=== PATIENT | male | born 1975 | race Caucasian/White ===

== ENCOUNTER 2018-04-04 07:46 | Day surgery (SDC) | payer OTHER ==
[2018-04-03 13:24] VITALS: BMI 30.8
[2018-04-04 08:28] LABS: #Eosinphils 0.2 thou/uL (0.0-0.7); #Lymphocytes 2.7 thou/uL (1.20-3.40); #Monocytes 0.7 thou/uL (0.11-0.59); #Neutrophils 4.7 thou/uL (1.40-6.50); %Basophils 0.4 % (0.0-1.0); %Eosinophils 2.1 % (0.0-10.0); %Lymphocytes 31.9 % (21.0-51.0); %Monocytes 8.6 % (0.0-10.0); Hemoglobin 17.8 g/dL (14.0-18.0); INR-International Normal Ratio 0.9; Mean Corpuscular HGB CONC 33.6 g/dL (32.0-36.0); Mean Corpuscular Hemoglobin 29.8 pg (27.0-31.0); Mean Corpuscular Volume 88.7 fL (78.0-98.0); Mean Platelet Volume 7.7 fL (7.4-10.4); PTT 27.6 SEC (22.9-36.1); Platelet Count 293 thou/uL (130-400); Prothrombin Time 12.2 SEC (12.0-14.7); RBC Distribution Width 11.8 % (11.5-14.5); Red Blood Cell (RBC) Count 5.97 mill/uL (4.70-6.10); White Blood Cell (WBC) Count 8.3 thou/uL (4.8-10.8)
[2018-04-04 08:40] LABS: Anion Gap 9 mmol/L (10-20); BUN (Urea Nitrogen) 11 mg/dL (8.9-20.6); Calc. Creatinine Clearance 148 mL/min (70-130); Calcium 9.5 mg/dL (7.8-10.44); Carbon Dioxide 27 mmol/L (22-29); Chloride 106 mmol/L (98-107); Estimated GFR-MDRD 81; Glucose 111 mg/dL (70-105); Potassium 4.1 mmol/L (3.5-5.1); Sodium 138 mmol/L (136-145)
[2018-04-04] MEDS ORDERED: CEFAZOLIN/Water 2 GM/20 ML SYRINGE ONE (08:55)
[2018-04-04] MEDS ORDERED: Thrombin 5000 UNITS/5 ML VIAL ONE (09:06)
[2018-04-04] MEDS ORDERED: Sodium Chloride 0.9% 10 ML ONE (09:06)
[2018-04-04] MEDS ORDERED: Bacitracin Zinc Ointment 30 gm TUBE ONE (09:06)
[2018-04-04] MEDS ORDERED: Midazolam HCl 2 mg/2 ml Vial ONE ×2 (09:48→12:46)
[2018-04-04] MEDS ORDERED: Fentanyl 100 MCG/2 ML VIAL ONE ×4 (09:55→14:09)
--- NOTE | 2018-04-04 12:28 | OP ---
SURGEON: Chito Cobos M.D. SPRING INTERN: Mich Tamayo PA-C. PREPROCEDURE DIAGNOSES: Right L5-S1 radiculopathy with right L4-L5 and right L5-S1 disk extrusions. POSTPROCEDURE DIAGNOSES: Right L5-S1 radiculopathy with right L4-L5 and right L5-S1 disk extrusions. PROCEDURES: 1. Right L4-L5, right L5-S1 hemilaminotomies, foraminotomies with diskectomies, right L4-L5 and righ t L5-S1. 2. Use of operative microscope for microdissection. PROCEDURE: After informed consent was obtained, the patient was brought to OR 11. Proper patient pa use and identification was carried out. He was placed in excellent general endotracheal anesthesia a nd positioned prone on the OR table. All appropriate points were padded. We identified the L4, L5, S1 dorsal spines. A linear marva was made over this area. This region was sterilely cleansed, prepar ed, and draped. Proper patient pause and identification was carried out. The wound was then opened with a combination of sharp, monopolar and blunt dissection. The L4, L5, S1 dorsal spines and hemila edouard on the right side were exposed. Localization film confirmed our area of interest. We then perf ormed right L4-L5, right L5-S1 hemilaminotomies and foraminotomies. The microscope was brought in fo r microdissection. Copious irrigation occurred throughout were satisfied with our diskectomies at th e right L4-L5, right L5-S1 segments. The wound was copiously irrigated and closed in anatomic layers and hemostasis was maximized.
[2018-04-04] MEDS ORDERED: Milk Of Magnesia 30 ML UDCUP PO PRN (12:50)
[2018-04-04] MEDS ORDERED: Promethazine HCl 25 MG/ML VIAL IM PRN ×2 (12:50→13:03)
[2018-04-04] MEDS ORDERED: Acetaminophen/Codeine 30-300mg Tablet PO PRN (12:50)
[2018-04-04] MEDS ORDERED: Morphine 4 MG/ML VIAL SLOW IVP PRN (12:50)
[2018-04-04] MEDS ORDERED: Mag-Al 1200 mg/1200 mg/30 ML UDCUP PO PRN (12:50)
[2018-04-04] MEDS ORDERED: Acetaminophen 325 MG TAB PO PRN (12:50)
[2018-04-04] MEDS ORDERED: Fleet Enema 133 ML BOT PR PRN (12:50)
[2018-04-04] MEDS ORDERED: INSULIN LISPRO SQ PRN (12:54)
[2018-04-04] MEDS: Sodium Chloride 0.9% 1,000 ML IV SCH (13:00)
[2018-04-04] MEDS ORDERED: Morphine Sulfate 2 MG/ML SYRINGE SLOW IVP PRN (13:03)
[2018-04-04] MEDS ORDERED: HYDROmorphone 2 MG/ML VIAL SLOW IVP PRN (13:03)
[2018-04-04] MEDS ORDERED: Meperidine HCl/PF 25 MG/ML VIAL SLOW IVP PRN (13:03)
[2018-04-04] MEDS ORDERED: Promethazine HCl 25 MG/ML VIAL SLOW IVP PRN (13:03)
[2018-04-04] MEDS ORDERED: Ondansetron HCl/PF 4 MG/2 ML Vial IVP PRN (13:03)
[2018-04-04] MEDS ORDERED: Ondansetron HCl/PF 4 MG/2 ML Vial ONE ×2 (13:14→13:17)
[2018-04-04] MEDS ORDERED: PHENYLEPHRINE-NS 100 MCG/ML 10 ML SYRINGE ONE (13:17)
[2018-04-04] MEDS ORDERED: Dexamethasone 20 MG/5 ML VIAL ONE (13:17)
[2018-04-04] MEDS ORDERED: PROPOFOL 200 MG/20 ML VIAL ONE (13:17)
[2018-04-04] MEDS ORDERED: Lidocaine 1% PF 5 ML VIAL ONE (13:17)
[2018-04-04] MEDS ORDERED: Metoclopramide HCl 10 MG/2 ML VIAL ONE (13:17)
[2018-04-04] MEDS ORDERED: Glycopyrrolate 0.2 MG/ML 5 ML SYRINGE ONE (13:17)
[2018-04-04] MEDS: CEFAZOLIN/Water 2 GM/20 ML SYRINGE SLOW IVP SCH (18:15)
[2018-04-04] MEDS: HYDROcodone/Acetaminophen 7.5/325 mg Tablet PO PRN ×2 (18:15→22:22)
[2018-04-04] MEDS: traMADol HCl 50 MG TAB PO PRN (20:34)
[2018-04-04] MEDS: tiZANidine HCl 4 MG TAB PO PRN (20:36)
[2018-04-04] MEDS ORDERED: Insulin Glargine 20 UNITS in Pre-Filled Syringe SC SCH (21:00)
[2018-04-04] MEDS ORDERED: Non-Formulary Item 1 EACH (Insulin Degludec [Tresiba Flextouch U-200] 20 UNIT) SC SCH (21:00)
[2018-04-05] MEDS: CEFAZOLIN/Water 2 GM/20 ML SYRINGE SLOW IVP SCH (00:59)
[2018-04-05] MEDS: tiZANidine HCl 4 MG TAB PO PRN ×2 (01:01→07:44)
[2018-04-05] MEDS: HYDROcodone/Acetaminophen 7.5/325 mg Tablet PO PRN ×2 (03:24→07:44)
[2018-04-05] MEDS: Sodium Chloride 0.9% 1,000 ML IV SCH (04:29)
[2018-04-05] MEDS: Bisacodyl 10 MG SUPP PR PRN ×2 (04:59→05:52)
[2018-04-05] MEDS: traMADol HCl 50 MG TAB PO PRN (05:49)
[2018-04-05 07:53] VITALS: BP 96/54; TEMP 98.7
[2018-04-05] MEDS ORDERED: Thyroid 60 MG TAB PO SCH (09:00)
--- NOTE | 2018-04-05 16:09 | DIS ---
DATE OF ADMISSION: 04/04/2018 DATE OF DISCHARGE: 04/05/2018 Mich Tamayo PA-C dictating for Dr. Chito Cobos. DISCHARGE DIAGNOSES: Lumbar spinal stenosis with lumbar radiculopathy and lumbar herniated nucleus p ulposus. HOSPITAL COURSE: Mr. Rodríguez was admitted to undergo right hemilaminotomies, foraminotomies and diskecto mies at the L4, L5, and S1 levels. His surgery was without complication and he required 1 overnight stay for adequate pain control postoperatively. At the time of discharge, he had good strength in th e bilateral lower extremities and had met discharge criteria and was walking. He states with signifi cant improvement in his right lower extremity symptoms. Did complain of some incisional back pain, b ut otherwise stated that his symptoms had significantly improved compared to his preoperative pain. Appropriate patient education and outpatient followups were provided to the patient and he understood as well as with his significant at the time of discharge, the patient was doing well with appr opriate patient education and outpatient followups provided. Both the patient and his significant ot her understood to call the office with questions or concerns prior to his next followup appointment.
== END 2018-04-05 09:49 | disposition home or self-care (01) ==
LOC: SDC 07:46 → 3SE 15:31 → SDC 04-05 09:49
PROVIDERS: ATTEND Surgery
PROC: 01NB0ZZ Release Lumbar Nerve, Open Approach (ICD-10-PCS; principal; 2018-04-04)
PROC: 0SB20ZZ Excision of Lumbar Vertebral Disc, Open Approach (ICD-10-PCS; principal; 2018-04-04)
DX: M51.16 Intervertebral disc disorders with radiculopathy, lumbar region (principal); M51.17 Intervertebral disc disorders with radiculopathy, lumbosacral region; M48.061 Spinal stenosis, lumbar region without neurogenic claudication
CPT/HCPCS: 36415; 36416; 76001; 80048; 85025; 85610; 85730; 93005; 93010; A4216; J0131; J1100; J2001; J2250; J2405; J2704; J2765; J3010; J3370; J3490

== ENCOUNTER 2020-09-15 15:42 | Outpatient (CLI) | payer OTHER | END 2020-09-15 15:43 | disposition home or self-care (01) | LOC: TBSIIMAG 15:42 | PROVIDERS: ATTEND Surgery | DX: S22.008A Other fracture of unspecified thoracic vertebra, initial encounter for closed fracture (principal) | CPT/HCPCS: 72072 ==